=== PATIENT | female | born 1995 | race Caucasian/White ===

== ENCOUNTER 2023-04-03 14:56 | Outpatient (RCR) | payer OTHER, SELFPAY | END 2023-04-03 23:59 | disposition home or self-care (01) | LOC: RPT 14:56 | PROVIDERS: ATTENDING PHYSICIAN Internal Medicine; PRIMARYCARE PHYSICIAN Physician Assistant Medical | DX: M62.89 Other specified disorders of muscle (principal); K59.00 Constipation, unspecified; R10.2 Pelvic and perineal pain; N94.89 Other specified conditions associated with female genital organs and menstrual cycle; Z73.6 Limitation of activities due to disability; M41.9 Scoliosis, unspecified; R35.1 Nocturia | CPT/HCPCS: 97014; 97112; 97530 ==

== ENCOUNTER 2023-06-23 09:54 | Outpatient (RCR) | payer OTHER, SELFPAY | END 2023-06-23 23:59 | disposition home or self-care (01) | LOC: RPT 09:54 | PROVIDERS: ATTENDING PHYSICIAN Internal Medicine; PRIMARYCARE PHYSICIAN Physician Assistant Medical | DX: M62.89 Other specified disorders of muscle (principal); K59.00 Constipation, unspecified; R10.2 Pelvic and perineal pain; N94.89 Other specified conditions associated with female genital organs and menstrual cycle; M41.9 Scoliosis, unspecified; R35.1 Nocturia; Z73.6 Limitation of activities due to disability | CPT/HCPCS: 97110; 97140; 97164 ==

== ENCOUNTER 2023-07-07 09:57 | Outpatient (RCR) | payer OTHER, SELFPAY | END 2023-07-07 23:59 | disposition home or self-care (01) | LOC: RPT 09:57 | PROVIDERS: ATTENDING PHYSICIAN Internal Medicine; PRIMARYCARE PHYSICIAN Physician Assistant Medical | DX: M62.89 Other specified disorders of muscle (principal); K59.00 Constipation, unspecified; R10.2 Pelvic and perineal pain; N94.89 Other specified conditions associated with female genital organs and menstrual cycle; M41.9 Scoliosis, unspecified; R35.1 Nocturia; Z73.6 Limitation of activities due to disability | CPT/HCPCS: 97110; 97140; 97530 ==